=== PATIENT | male | born 1965 | race Caucasian/White ===

== ENCOUNTER 2016-06-08 20:10 | Observation (INO) | payer OTHER ==
[~2016-06-08] VITALS: Ht 177.8 cm; Wt 102.4 kg
[~2016-06-08 20:10] MED LIST: ASCO1TAB22 PO; ASPI-628 PO; INSU100I13 SUBQ; MULT-1018 PO; OMEG1CAP5 PO; Oxycodone Hcl PO
[2016-06-08 20:15] VITALS: BP 163/94; PULSE 97; RESP 18; O2SAT 99
--- NOTE | 2016-06-08 20:40 | ED.REPORT ---
HPI-Abd Pain F 40 and Over Date of Service Jun 08, 2016 ED Provider: Dr. Johnny Saunders D.O. A 51 year old male with a history of hypertension, hypercholesterolemia, nephrolithiasis, diabetes, and pancreatitis s/p cholecystectomy presents to the ED with abdominal pain onset two hours prior to arrival. The patient also reports fatigue. He denies nausea, vomiting, diarrhea, or dysuria. The patient ate [place] food from a restaurant one hour prior to onset of symptoms. Nursing Notes Stated Complaint: STOMACH PAIN Chief Complaint: Male Abdominal Pain Nursing Notes Reviewed: Yes Allergies: Coded Allergies: Penicillins (Verified Allergy, Unknown, ITCHY, 06/08/16) Scheduled Aspirin (Aspir 81) 81 Mg Tablet.dr 81 MG PO DAILY Insulin Glargine (Lantus U100 Solostar Insulin Pen) 100 Unit/1 Ml Insuln.pen 50 UNIT SUBQ QPM-INSULIN Multivitamin (Multi Vitamin Daily) 1 Each Tablet 1 EACH PO DAILY Scheduled PRN ([Oxycodone Hcl]) 5 MG TABLET 5 MG PO Q4H PRN PRN For Pain Miscellaneous Medications Ascorbic Acid/Bioflavonoids (Vit C-Bioflavonoids Tab SA) 1 Each Tablet.er 1 EACH PO [place]-3 Fatty Acids/Fish Oil (Fish Oil 1,000 mg Capsule) 1 Each Capsule 1 EACH PO General Time Seen by MD: 20:39 Chief Complaint Abdominal pain Hx Obtained From: Patient Arrived By: Walk-in Sudden in Onset?: No Onset Occurred: 1 - 4 hours ago Context of Onset: Possible food poisoning Symptom Duration: Since onset Progression since Onset: Gradually worsening Location: : Diffuse Quality: Painful Severity: Current: Moderate Severity: Maximum: Moderate Associated with: Denies: Diarrhea, Dysuria, Fever, Nausea, Vomiting Pertinent Negative: Relieved by nothing Context Related History: Reports: Abdominal surgery, Cholecystitis Recent Healthcare: No recent doctor visit Similar Sx Previous: Yes Past Medical History Past Medical History Notes: See recent visit notes from EKG age, lipase was elevated, CT suggested gallstones July 2014 Past Medical History h/o gallstone pancreatitis -> cholecystectomy Hypercholesterolemia hypertension h/o MRSA h/o right kidney stone Reports: Diabetes mellitus Past Surgical History left thigh abscess incision Reports: Cholecystectomy Family History Reviewed, not relevant Smoking History Never Smoker Social History Alcohol Use: Denies alcohol use Drug Use: THC Other Social History: Local resident Ambulatory Status Independent Review of Systems Constitutional: Reports: Fatigue, Denies: Fever GI: Reports: Abdominal pain, Denies: Diarrhea, Nausea, Vomiting Female: Denies: Dysuria Complete sys rev & neg: except as marked. Physical Exam Vital Signs Vital Signs (First) Date Time Temp Pulse Resp B/P Pulse Ox O2 Delivery O2 Flow Rate FiO2 06/08/16 20:15 36.9 97 18 163/94 99 Room Air Initial VS: Reviewed Head / Eyes: Atraumatic, Normocephalic ENT: Conjunctiva normal, No scleral icterus Neck: Supple, Full range of motion Skin: Warm, Dry, No cyanosis Neurologic: Alert, Oriented, Nonfocal Psychiatric: Mood/affect normal, Behavior normal, Normal thought content General/Constitutional: Awake, Alert Distress / Hydration: Positive: Distress moderate (Writhing due to pain) Respiratory / Chest: Breath sounds NL, Breath sounds = bilat, No respiratory distress Cardiovascular: Heart rate NL, Regular rhythm, Heart sounds NL Abdomen: Soft, No guarding Tenderness/Guarding/Rebound: Positive: Tender periumbilical Interpretation & Diagnostics Lab Results Interpretation Result Diagram: 06/08/16203606/08/162036 Test 06/08/16 20:30 06/08/16 20:37 Lactic Acid Level 1.9mmol/L (0.4-2.0) White Blood Count 16.4th/mm3 (3.8-10.1) Red Blood Count 4.59mil/mm3 (4.40-5.80) Hemoglobin 13.9g/dL (13.8-17.2) Hematocrit 42.2% (41.0-50.0) Mean Corpuscular Volume 91.9fL (81-100) Mean Corpuscular Hemoglobin 30.3pg (27.0-35.0) Mean Corpuscular Hemoglobin Concent 32.9% (32.0-37.0) Red Cell Distribution Width 12.8% (12.3-15.4) Platelet Count 328bil/L (150-400) Neutrophils (%) (Auto) 67.9% (40-74) Lymphocytes (%) (Auto) 21.0% (14-46) Monocytes (%) (Auto) 7.8% (4-12) Eosinophils (%) (Auto) 2.7% (0-5) Basophils (%) (Auto) 0.2% (0-3) Sodium Level 143mEq/L (134-144) Potassium Level 3.8mEq/L (3.5-5.2) Chloride Level 99mEq/L (97-108) Carbon Dioxide Level 32mmol/L (18-29) Blood Urea Nitrogen 15mg/dL (6-24) Creatinine 1.19mg/dL (0.76-1.27) Estimat Glomerular Filtration Rate 69mL/min (>59) Glucose Level 105mg/dL (60-99) Calcium Level 9.6mg/dL (8.5-10.1) Magnesium Level 1.9mg/dL (1.6-2.6) Total Bilirubin 0.3mg/dL (0.0-1.2) Aspartate Amino Transf (AST/SGOT) 24U/L (0-50) Alanine Aminotransferase (ALT/SGPT) 30U/L (0-44) Alkaline Phosphatase 47U/L (25-150) Total Protein 7.5g/dL (6.4-8.4) Albumin 4.4g/dL (3.4-5.0) Lipase 46U/L (13-60) Hold Max Top Tube Received (Received) ECG Interpretation ECG Interpretation: Sinus rhythm rate 89 Time: 20:43 Interpreted by: ED physician CT Abd / Pelvis Interpretation IMPRESSION: 1. Mildly dilated loops of small bowel with a relative transition in the right lower quadrant associated with segmental bowel wall thickening. The findings are compatible with a nonspecific enteritis, likely infectious or inflammatory, with associated mild functional obstruction or ileus. 2. Multiple hypoattenuating hepatic lesions, a few of which demonstrate peripheral nodular enhancement, most likely representing hemangiomas. These are slightly increased in size compared to the prior study of 10/24/12. Dictated by: Santy Martinez M.D. on 06/08/2016 at 22:35 Study type: Abdominal CT IV contrast, Abdom CT oral contrast Interpretation / Wet Read by: Interpret - Radiologist Re-Eval/Medical Decision Source of Hx: Old records Re-Evaluation/Progress : Time of Eval: 23:24 Patient Status: Condition unchanged Re-Evaluation/Progress Note: Patient is still in pain. Discussed with patient CT results, diagnosis, and plan for admit. Patient agrees with plan for care and all questions were addressed. Consultation : Referral / Consult Name: Cy Ahn MD Consulted With: Hospitalist Call Returned at: 23:32 Filament Tester: Agrees with eval, Agrees with plan, Accepts admit Counseled Regarding: Diagnosis, Need for admission Discharge & Departure Primary Impression: SBO (small bowel obstruction) Disposition: ADMITTED TO HOSPITAL Discharge Condition All VS Reviewed: Yes Condition: Stable Referrals: Funmi Koch PA-C (PCP) Ale Attestation Portions of this note were transcribed by Carolynn Gonzalez. I, Dr. Saunders, personally performed the history, physical exam, and medical decision-making; I reviewed and confirmed the accuracy of the information in the transcribed note. Signed by: Ale Reese, 06/08/2016, 23:50 copies to: Funmi Koch PA-C, Todd P DO Jun 08, 2016 20:39 CAROLYNN GONZALEZ Jun 08, 2016 21:04
[2016-06-08 21:03] LABS: BASOPHILS % (AUTO) 0.2 % (0-3); EOSINOPHILS % (AUTO) 2.7 % (0-5); MONOCYTES % (AUTO) 7.8 % (4-12); Mean Corpuscular Hemoglobin 30.3 pg (27.0-35.0); Mean Corpuscular Volume 91.9 fL (81-100); NEUTROPHILS % (AUTO) 67.9 % (40-74); Platelet Count 328 bil/L (150-400)
[2016-06-08] MEDS: 0.9% Sodium Chloride 1,000 ML IV SCH ×2 (21:10→23:47)
[2016-06-08] MEDS: HYDROmorphone 0.5 mg/0.5 mL iSecure Syringe IVPUSH PRN ×3 (21:10→23:04)
[2016-06-08] MEDS: Ondansetron 2 mg/mL 2 mL Inj IVPUSH PRN ×2 (21:11→21:44)
[2016-06-08 21:13] LABS: Magnesium 1.9 mg/dL (1.6-2.6)
--- NOTE | 2016-06-08 22:36 | DRSVH ---
PROCEDURE: CT ABDOMEN AND PELVIS WITH CONTRAST ([id number]) INDICATIONS: severe periumbillical abdominal pain TECHNIQUE: After the administration of oral and intravenous contrast, 5 mm thick sections acquired from the diap hragms to the symphysis. 5 mm thick coronal and sagittal reformats were performed. For radiation do se reduction, the following was used: automated exposure control, adjustment of mA and/or kV accordi ng to patient size. COMPARISON: [facility], CT, CT KUB, 07/04/2015, 14:39. CT abdomen pelvis 08/21/14, CT abd omen pelvis 10/24/12. FINDINGS: Image quality: Excellent. ABDOMEN: Lung bases: Lung bases are clear. Heart size is normal. Solid organs: Multiple hypoattenuating lesions are redemonstrated within the liver a few of which dem onstrate small peripheral foci of enhancement. The largest, within segment II of the left hepatic lo be, measures up to 2.7 x 1.1 cm in Tetris dimension. The lesions appear slightly increased in size c ompared to the prior study of 10/24/12. Biliary system is non-dilated. Pancreas enhances normally. N o adrenal nodules. Kidneys are normal in size and enhancement, without hydronephrosis. Peritoneum and bowel: There are multiple mildly dilated loops of small bowel measuring up to 3.3 cm in diameter. There is a relative transition point in the right lower quadrant associated with a thic k walled segment of small bowel. There are scattered air-fluid levels. The findings are compatible with a nonspecific enteritis with associated mild functional obstruction. Distal loops of small dmitry l are nondistended. The appendix is normal in appearance. There is colonic diverticulosis without a cute diverticulitis. The distal colon is also nondistended. No free fluid or air. Nodes and vessels: No retroperitoneal or mesenteric adenopathy. Aorta and inferior vena cava are no rmal in caliber. Miscellaneous: No ventral hernias. PELVIS: Genitourinary: Bladder wall thickness is normal. Miscellaneous: No inguinal hernias or adenopathy. Bones: No suspicious bony lesions. No vertebral body compression fractures. IMPRESSION: 1. Mildly dilated loops of small bowel with a relative transition in the right lower quadrant associ ated with segmental bowel wall thickening. The findings are compatible with a nonspecific enteritis, likely infectious or inflammatory, with associated mild functional obstruction or ileus. 2. Multiple hypoattenuating hepatic lesions, a few of which demonstrate peripheral nodular enhanceme nt, most likely representing hemangiomas. These are slightly increased in size compared to the prior study of 10/24/12. Dictated by: Santy Martinez M.D. on 06/08/2016 at 22:35 Approved by: Santy Martinez M.D. on 06/08/2016 at 22:35
[2016-06-08 23:04] VITALS: BP 143/83; PULSE 91; RESP 20; O2SAT 99
[2016-06-08] MEDS ORDERED: Polyethylene Glycol (PEG) 17 Gm Powder PO PRN (23:35)
[2016-06-08] MEDS ORDERED: Alum-Mag Hydrox-Simeth 30 mL Suspension PO PRN (23:35)
[2016-06-08] MEDS ORDERED: Ondansetron 2 mg/mL 2 mL Inj IVPUSH PRN (23:35)
[2016-06-08] MEDS ORDERED: Glucose 40% Oral Gel 15 Gm Tube PO PRN (23:40)
[2016-06-09 00:59] VITALS: BP 148/81; PULSE 86; RESP 16; O2SAT 94
[2016-06-09] MEDS: HYDROmorphone 0.5 mg/0.5 mL iSecure Syringe IVPUSH PRN ×2 (01:22→01:23)
[2016-06-09] MEDS: 0.9% Sodium Chloride 1,000 ML IV SCH ×2 (01:44→11:54)
[2016-06-09 01:49] VITALS: BP 145/76; PULSE 71; RESP 18; O2SAT 93
--- NOTE | 2016-06-09 01:57 | PCM.HPMED ---
Subjective Date of Service Jun 08, 2016 Primary Provider: Admitting Physician: Primary Care Physician: Funmi Koch PA-C Attending Physician: Admit Status: From the Emergency Department, 23-Hour Observation, Non-Telemetry Chief Complaint: Acute abdominal pain History of Present Illness: Deven Gilbert is a man with Diabetes, History of Pancreatitis related to Hypertriglyceridemia and Hypertension who presented to [facility] Emergency department with complaints of abdominal pain Patient reported pain onset two hours prior to arrival. The patient ate [place] food from a restaurant 1 hour prior to onset of symptoms. He felt sick and lied down to rest but the symptoms worsened. He reported severe abdominal pain, diffuse, band-like around his mid section without any radiation. Associated symptoms includes nausea but no vomiting. Denies any fever or chills. 4 other family members ate the same tajik food but none of them are sick. Last bowel movement was yesterday morning without any loose stools noted. No recent travels. Also patient denies any coughing, muscle weakness to suggest influenza. Patient had history of acute pancreatitis in 2014 and had a lap cholecystectomy shortly after that time. Patient is diabetic but well controlled with insulin. He denies any other abdominal surgery Review of Systems: Pertinent positives as noted in HPI. All other systems were reviewed and are negative Allergies Coded Allergies: Penicillins (Verified Allergy, Unknown, ITCHY, 06/08/16) PMH Insulin dependent DM2 Pancreatitis thought to be associated with hypertriglyceridemia MRSA abscess and cellulitis of R thigh Morbid obesity Surgical History Lap Cholecystectomy Family History Both parents have no medical issues Social History Hx Alcohol Use: Yes (occasional) Hx Substance Use: Yes (Marijuana) Hx Tobacco Use: No Smoking Status: Never Smoker Exam Vital Signs Vital Sign - Last Date Time Temp Pulse Resp B/P Pulse Ox O2 Delivery O2 Flow Rate FiO2 06/08/16 23:04 91 20 143/83 99 Room Air 06/08/16 20:15 36.9 Exam General: Alert, Oriented X3, Cooperative, mild Distress due to abdominal pain Eyes: PERRLA, Scleral Anicteric Mouth: Mouth Normal, Mucous Membranes Moist/[place]. NG tube in place Neck: Supple, no Thyromegaly, trachea central. Chest & Lungs: Clear to auscultation & percussion, No adventitious breath sounds, no crackles, no wheeze Cardiovascular: Normal S1, Normal S2, No Murmurs/Rubs/Gallops, Regular Rate/ Rhythm, (No JVD, no peripheral edema) Pulses: Radial (present and equal), Dorsalis Pedi (present and equal) Abdomen: Soft, diffuse tender, no rebound tenderness, Non-distended, hypoactive bowel tones. Musculoskeletal: Unremarkable. Normal range of motion, no swollen or erythematous joints Extremities: No edema, no cyanosis, no clubbing. Skin: No rashes. Warm and dry, no erythematous areas Neurological: Grossly neurologically intact, Normal Speech, Sensation Intact Lymphatic: Lymph nodes Cervical and Axillary not palpable. Lab and Diagnostics Labs Laboratory Tests Test 06/08/16 20:30 06/08/16 20:37 Lactic Acid Level 1.9mmol/L (0.4-2.0) White Blood Count 16.4th/mm3 (3.8-10.1) Red Blood Count 4.59mil/mm3 (4.40-5.80) Hemoglobin 13.9g/dL (13.8-17.2) Hematocrit 42.2% (41.0-50.0) Mean Corpuscular Volume 91.9fL (81-100) Mean Corpuscular Hemoglobin 30.3pg (27.0-35.0) Mean Corpuscular Hemoglobin Concent 32.9% (32.0-37.0) Red Cell Distribution Width 12.8% (12.3-15.4) Platelet Count 328bil/L (150-400) Neutrophils (%) (Auto) 67.9% (40-74) Lymphocytes (%) (Auto) 21.0% (14-46) Monocytes (%) (Auto) 7.8% (4-12) Eosinophils (%) (Auto) 2.7% (0-5) Basophils (%) (Auto) 0.2% (0-3) Sodium Level 143mEq/L (134-144) Potassium Level 3.8mEq/L (3.5-5.2) Chloride Level 99mEq/L (97-108) Carbon Dioxide Level 32mmol/L (18-29) Blood Urea Nitrogen 15mg/dL (6-24) Creatinine 1.19mg/dL (0.76-1.27) Estimat Glomerular Filtration Rate 69mL/min (>59) Glucose Level 105mg/dL (60-99) Calcium Level 9.6mg/dL (8.5-10.1) Magnesium Level 1.9mg/dL (1.6-2.6) Total Bilirubin 0.3mg/dL (0.0-1.2) Aspartate Amino Transf (AST/SGOT) 24U/L (0-50) Alanine Aminotransferase (ALT/SGPT) 30U/L (0-44) Alkaline Phosphatase 47U/L (25-150) Total Protein 7.5g/dL (6.4-8.4) Albumin 4.4g/dL (3.4-5.0) Lipase 46U/L (13-60) Hold Max Top Tube Received (Received) Result Diagram: 06/08/16203606/08/162036 X-Rays, CTs and MRIs CT ABDOMEN AND PELVIS WITH CONTRAST 05/08 IMPRESSION: 1. Mildly dilated loops of small bowel with a relative transition in the right lower quadrant associated with segmental bowel wall thickening. The findings are compatible with a nonspecific enteritis, likely infectious or inflammatory, with associated mild functional obstruction or ileus. 2. Multiple hypoattenuating hepatic lesions, a few of which demonstrate peripheral nodular enhancement, most likely representing hemangiomas. These are slightly increased in size compared to the prior study of 10/24/12. Dictated by: Santy Martinez M.D. on 06/08/2016 at 22:35 Approved by: Santy Martinez M.D. on 06/08/2016 at 22:35 Assessment & Plan Deven Gilbert is a man with Diabetes, History of Pancreatitis related to Hypertriglyceridemia and Hypertension who presented to [facility] Emergency department with complaints of abdominal pain 1. Acute Abdominal pain. Present on admission, Ongoing symptoms Possible bowel obstruction secondary to adhesions from prior surgery (not a big surgery to cause adhesions) or possibly ileus. Also could be a viral gastroenteritis. Previous history of pancreatitis, but No Lipase elevation or radiological evidence of Acute Pancreatitis. Bowel wall thickening on Ct scan also suggest infectious or inflammatory process. Some interesting findings around the liver of CT scan but labs are not elevated. Similar findings were noted by the surgeons during the time patient had acute pancreatitis in 2014. - nothing by mouth - continue NG tube placed with intermittent suction - consider Surgical consult in the morning if symptoms do not improve - IV fluids and pain medications 2. Acute Leukocytosis. Present on admission Likely from stress or possible gastroenteritis - monitor closely with repeat labs 3. Insulin dependent Type 2 Diabetes Presumes stable - checking A1c - low correction Lispro algorithm - holding Metformin while in patient - will determine patient's outpatient insulin regimen and resume Lantus 4. Hypertension - will consolidate medications and continue - Acetaminophen as needed for mild pain/fever/headache - Bowel regimen as needed - Antiemetic as needed Patient is admitted under observation status with expected length of stay less than 2 midnights due to severity of presenting symptoms, risk of adverse event, and complexity of treatment plan . Resuscitation Status: CPR: Attempt Resuscitation Cy Ahn MD Jun 08, 2016 23:45
[2016-06-09] MEDS: HYDROmorphone 1 mg/mL Inj IVPUSH PRN ×2 (04:42→09:11)
--- NOTE | 2016-06-09 05:55 | NUR ---
Admit/Med rec pt admitted to floor around 0115, A&O with severe 8/10 abdominal pain, stat Dilaudid IV given as ordered and pain decreased to about 2/10. Pt arrived with NG tube in place which was attached to LIS, small amt of yellowish clear gastric fluids draining. BT very decreased in all quadrants. Pt does not recollect all dosages of his meds and did not bring a list, therefore med rec not completed.
[2016-06-09 06:13] LABS: BASOPHILS % (AUTO) 0.1 % (0-3); EOSINOPHILS % (AUTO) 0.1 % (0-5); MONOCYTES % (AUTO) 5.7 % (4-12); Mean Corpuscular Hemoglobin 30.2 pg (27.0-35.0); Mean Corpuscular Volume 92.6 fL (81-100); NEUTROPHILS % (AUTO) 82.4 % (40-74); Platelet Count 292 bil/L (150-400)
[2016-06-09] MEDS ORDERED: LISI40TA PO (08:16)
[2016-06-09] MEDS ORDERED: METF500T4 PO (08:16)
[2016-06-09] MEDS: Insulin LISPRO 300 Unit/3 mL Inj SUBQ SCH ×3 (09:12→17:08)
--- NOTE | 2016-06-09 10:05 | NUR ---
Social Work: Screen D: Per EMR review, pt is a 51 year old male admitted for Small Bowel Obstruction. P tis [employer] insurance. PCP is Funmi Koch PA-C. NOK is Hieu Fletcher, son, . Pt in observation status. No readmit score entered at this time. Advanced information offered to pt by bedside RN. Pt discussed in morning rounds. Pt currently with NG tube placed and surgery consult pending. A: Pt lives in [place], and is I at baseline. P: Anticipate pt to discharge home with no social work needs identified at this time; CLINICAL DOCUMENTATION SPEC to continue to follow and assist if needs change pending clinical course. DELROY Deng
--- NOTE | 2016-06-09 10:10 | PCM.PNMED ---
Subjective Date of Service Jun 09, 2016 Subjective He is feeling better after placement of the NG tube and drainage of the gastric contents. He looks quite miserable however. Clinically he appears to have a presenting small bowel obstruction although the duration of symptoms and the CT scan would suggest ileus. He has had prior laparoscopic surgery so there is some risk of an adhesion causing bowel obstruction although none was seen on CT. He is asking for ice chips. Exam Vital Signs Vital Sign - Last Date Time Temp Pulse Resp B/P Pulse Ox O2 Delivery O2 Flow Rate FiO2 06/09/16 04:42 Supplement Oxygen 06/09/16 01:49 36.6 71 18 145/76 93 Intake and Output 06/08/16 06/08/16 06/09/16 Cumulative From/Thru 15:00 23:00 07:00 06/08/16 20:15 - 06/09/16 04:42 Intake Total 1000 ml 1000 ml 2000 ml Balance 1000 ml 1000 ml 2000 ml Intake IV Total 1000 ml 1000 ml 2000 ml Exam Alert and oriented 3 without any signs of delirium. He looks quite uncomfortable with the NG tube present in his nostril. Heart is regular rate and rhythm without murmur. Lungs are clear to auscultation bilaterally. Abdomen is obese, nontender, not distended, soft, without organomegaly currently. Extremities have no ankle edema. Lab and Diagnostics Result Diagram: 06/09/1652606/09/16526 X-Rays, CTs and MRIs CT ABDOMEN AND PELVIS WITH CONTRAST 05/08 IMPRESSION: 1. Mildly dilated loops of small bowel with a relative transition in the right lower quadrant associated with segmental bowel wall thickening. The findings are compatible with a nonspecific enteritis, likely infectious or inflammatory, with associated mild functional obstruction or ileus. 2. Multiple hypoattenuating hepatic lesions, a few of which demonstrate peripheral nodular enhancement, most likely representing hemangiomas. These are slightly increased in size compared to the prior study of 10/24/12. Dictated by: Santy Martinez M.D. on 06/08/2016 at 22:35 Approved by: Santy Martinez M.D. on 06/08/2016 at 22:35 Assessment & Plan Deven Gilbert is a 51 year old man with Diabetes, History of Pancreatitis related to Hypertriglyceridemia and Hypertension who presented with complaints of abdominal pain 1. Acute Abdominal pain. Present on admission, Ongoing symptoms Possible bowel obstruction secondary to adhesions from prior surgery (not a big surgery to cause adhesions) or possibly ileus. Also could be a viral gastroenteritis. Previous history of pancreatitis, but No Lipase elevation or radiological evidence of Acute Pancreatitis. Bowel wall thickening on Ct scan also suggest infectious or inflammatory process. Some interesting findings around the liver of CT scan but labs are not elevated. Similar findings were noted by the surgeons during the time patient had acute pancreatitis in 2015. - nothing by mouth - continue NG tube placed with intermittent suction - I have consulted Dr. Mcclellan this morning. - IV fluids and pain medications 2. Acute Leukocytosis. Present on admission Likely from stress or possible gastroenteritis - monitor closely with repeat labs 3. Insulin dependent Type 2 Diabetes Presumes stable - checking A1c - low correction Lispro algorithm - holding Metformin while in patient - will determine patient's outpatient insulin regimen and resume Lantus 4. Hypertension - will consolidate medications and continue - Acetaminophen as needed for mild pain/fever/headache - Bowel regimen as needed - Antiemetic as needed Disposition is pending on surgical impressions. If NG tube can be removed, and diet tolerated than he could potentially be discharged in the next 24 hours. There is also the possibility of needing surgery, still present. . Pain Evaluation: Adequate Pain Control VTE Mechanical Devices: Intermittant Pneumatic CD Resuscitation Status: CPR: Attempt Resuscitation Sarah Cage MD Jun 09, 2016 07:41
--- NOTE | 2016-06-09 12:46 | CONS ---
[address] [address] CONSULTATION REPORT PATIENT: ADI KHALIL : 1965 MR#: [id number] ADMIT: 06/09/2016 JOB ID: [id number] DATE OF SERVICE: 06/09/2016 CHIEF COMPLAINT: Abdominal pain. HISTORY OF PRESENT ILLNESS: The patient is a 51-year-old male who was admitted to the hospital overnight due to abdominal pain. The patient had [place] food in [place] last night, and a couple of hours later, developed discomfort in the mid abdominal region. It was on both sides. This was associated with some nausea, but no vomiting. His girlfriend said he was sweaty and looked pale. There's been no diarrhea. The patient has had a prior episode of gallstone pancreatitis back in 2014 and he thought the pains were sort of similar. The patient did have his gallbladder [place] [address] Wagner. Due to the abdominal pain, patient presented to the emergency room last night and workup included a CT scan that suggests a thickened segment of small bowel in the right lower quadrant which may be compatible with enteritis or functional obstruction or ileus. I was consulted by the hospitalist this morning for evaluation. At this time, the patient has an NG tube in place. He just reported passing flatus and that the abdominal pain has now "turned the corner" and is improving. PAST MEDICAL HISTORY: Obesity, kidney stone, diabetes, left thigh abscess I and D, hypertension, gallstone pancreatitis in 2014, status post laparoscopic cholecystectomy. MEDICATIONS AT HOME: Include baby aspirin, insulin, lisinopril, metformin. ALLERGIES: PENICILLIN. SOCIAL HISTORY: The patient has a girlfriend. He lives in [place]. 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 FAMILY HISTORY: Positive for diabetes. REVIEW OF SYSTEMS: Positive for the nausea, and sweaty and pale, and the abdominal pain. All other systems reviewed and were negative. There is no diarrhea. PHYSICAL EXAMINATION: GENERAL: The patient is currently in the hospital bed in no acute distress. VITAL SIGNS: His BMI is 32.4. Temperature is 36.6, blood pressure 145/76, pulse is 71 respirations 18. HEENT: Head is normocephalic, atraumatic. There is no scleral icterus. NG tube is in place. NECK: Supple. HEART: Is in regular rate. LUNGS: Clear bilaterally. ABDOMEN: Mildly obese, but it is soft. On palpation in all quadrants at this time, there is no tenderness. EXTREMITIES: Show no clubbing and no cyanosis. NEUROLOGICAL: Patient is awake and alert and follows commands. LABORATORY EXAMINATION: Laboratory examination last night showed a white blood count of 16.4, and on repeat this morning the white count is 15.2. Hematocrit 38.9, platelet count is 292. Sodium is 141, potassium 4.4, creatinine is 1.13, total bilirubin 0.3, and lipase last night was 46. ASSESSMENT: This is a 51-year-old male with a 1-day history of mid abdominal pain associated with some nausea, elevated white blood count, and a CT scan finding consistent with possible small bowel enteritis or functional obstruction or ileus. Patient clinically has improved with an NG tube, and he is now passing flatus. It is possible that patient's symptoms were related to the food that he had last night. I think the patient's NG tube can be removed now that he is feeling better and he can be advanced on a diet gradually. I do not think the patient requires surgical intervention at this point. We will follow the patient with you. GA
[2016-06-09] MEDS ORDERED: AMLO5TAB2 PO (14:59)
[2016-06-09] MEDS ORDERED: AMLO10TA3 PO (14:59)
[2016-06-09 15:45] VITALS: BP 124/76; PULSE 80; RESP 18; O2SAT 96
--- NOTE | 2016-06-09 18:05 | PCM.DC.MED ---
Discharge Summary Date of Service Jun 09, 2016 Dates of Hospitalization Date of Hospital Admission Jun 09, 2016 at 00:54 Date of Discharge: Jun 09, 2016 Providers: Admitting Physician: Cy Ahn MD Primary Care Physician: Funmi Koch PA-C Attending Physician: Cy Ahn MD Consultations 06/09/2016 CHIEF COMPLAINT: Abdominal pain. HISTORY OF PRESENT ILLNESS: The patient is a 51-year-old male who was admitted to the hospital overnight due to abdominal pain. The patient had [place] food in [place] last night, and a couple of hours later, developed discomfort in the mid abdominal region. It was on both sides. This was associated with some nausea, but no vomiting. His girlfriend said he was sweaty and looked pale. There's been no diarrhea. The patient has had a prior episode of gallstone pancreatitis back in 2014 and he thought the pains were sort of similar. The patient did have his gallbladder removed in [address] Wagner. Due to the abdominal pain, patient presented to the emergency room last night and workup included a CT scan that suggests a thickened segment of small bowel in the right lower quadrant which may be compatible with enteritis or functional obstruction or ileus. I was consulted by the hospitalist this morning for evaluation. At this time, the patient has an NG tube in place. He just reported passing flatus and that the abdominal pain has now "turned the corner" and is improving. PAST MEDICAL HISTORY: Obesity, kidney stone, diabetes, left thigh abscess I and D, hypertension, gallstone pancreatitis in 2014, status post laparoscopic cholecystectomy. MEDICATIONS AT HOME: Include baby aspirin, insulin, lisinopril, metformin. ALLERGIES: PENICILLIN. SOCIAL HISTORY: The patient has a girlfriend. He lives in [place]. 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 FAMILY HISTORY: Positive for diabetes. REVIEW OF SYSTEMS: Positive for the nausea, and sweaty and pale, and the abdominal pain. All other systems reviewed and were negative. There is no diarrhea. PHYSICAL EXAMINATION: GENERAL: The patient is currently in the hospital bed in no acute distress. VITAL SIGNS: His BMI is 32.4. Temperature is 36.6, blood pressure 145/76, pulse is 71 respirations 18. HEENT: Head is normocephalic, atraumatic. There is no scleral icterus. NG tube is in place. NECK: Supple. HEART: Is in regular rate. LUNGS: Clear bilaterally. ABDOMEN: Mildly obese, but it is soft. On palpation in all quadrants at this time, there is no tenderness. EXTREMITIES: Show no clubbing and no cyanosis. NEUROLOGICAL: Patient is awake and alert and follows commands. LABORATORY EXAMINATION: Laboratory examination last night showed a white blood count of 16.4, and on repeat this morning the white count is 15.2. Hematocrit 38.9, platelet count is 292. Sodium is 141, potassium 4.4, creatinine is 1.13, total bilirubin 0.3, and lipase last night was 46. ASSESSMENT: This is a 51-year-old male with a 1-day history of mid abdominal pain associated with some nausea, elevated white blood count, and a CT scan finding consistent with possible small bowel enteritis or functional obstruction or ileus. Patient clinically has improved with an NG tube, and he is now passing flatus. It is possible that patient's symptoms were related to the food that he had last night. I think the patient's NG tube can be removed now that he is feeling better and he can be advanced on a diet gradually. I do not think the patient requires surgical intervention at this point. We will follow the patient with you. David Mcclellan MD 06/09/16 1029 Procedures XRay, CTs & MRIs CT ABDOMEN AND PELVIS WITH CONTRAST 05/08 IMPRESSION: 1. Mildly dilated loops of small bowel with a relative transition in the right lower quadrant associated with segmental bowel wall thickening. The findings are compatible with a nonspecific enteritis, likely infectious or inflammatory, with associated mild functional obstruction or ileus. 2. Multiple hypoattenuating hepatic lesions, a few of which demonstrate peripheral nodular enhancement, most likely representing hemangiomas. These are slightly increased in size compared to the prior study of 10/24/12. Dictated by: Santy Martinez M.D. on 06/08/2016 at 22:35 Approved by: Santy Martinez M.D. on 06/08/2016 at 22:35 Brief History Deven Gilbert is a man with Diabetes, History of Pancreatitis related to Hypertriglyceridemia and Hypertension who presented to [facility] Emergency department with complaints of abdominal pain Patient reported pain onset two hours prior to arrival. The patient ate [place] food from a restaurant 1 hour prior to onset of symptoms. He felt sick and lied down to rest but the symptoms worsened. He reported severe abdominal pain, diffuse, band-like around his mid section without any radiation. Associated symptoms includes nausea but no vomiting. Denies any fever or chills. 4 other family members ate the same [place] food but none of them are sick. Last bowel movement was yesterday morning without any loose stools noted. No recent travels. Also patient denies any coughing, muscle weakness to suggest influenza. Patient had history of acute pancreatitis in 2014 and had a lap cholecystectomy shortly after that time. Patient is diabetic but well controlled with insulin. He denies any other abdominal surgery Hospital Course 1. Acute Abdominal pain. Present on admission, Ongoing symptoms He was seen by General Surgery and cleared to eat. He has had 2 meals and is discharging to home in stable condition . 2. Acute Leukocytosis. Present on admission WBC is down to 15.2 3. Insulin dependent Type 2 Diabetes Resuming Lantus and Metformin at home. 4. Hypertension Continue Lisinopril and Amlodipine See details of exam in todays progress note. . Exam Vital Signs (Last) Date Time Temp Pulse Resp B/P Pulse Ox O2 Delivery O2 Flow Rate FiO2 06/09/16 15:45 36.6 80 18 124/76 96 Room Air Test 06/08/16 20:30 06/08/16 20:37 06/09/16 05:27 Lactic Acid Level 1.9mmol/L (0.4-2.0) Magnesium Level 1.9mg/dL (1.6-2.6) Lipase 46U/L (13-60) Hold Max Top Tube Received (Received) White Blood Count 15.2th/mm3 (3.8-10.1) Red Blood Count 4.20mil/mm3 (4.40-5.80) Hemoglobin 12.7g/dL (13.8-17.2) Hematocrit 38.9% (41.0-50.0) Mean Corpuscular Volume 92.6fL (81-100) Mean Corpuscular Hemoglobin 30.2pg (27.0-35.0) Mean Corpuscular Hemoglobin Concent 32.6% (32.0-37.0) Red Cell Distribution Width 12.8% (12.3-15.4) Platelet Count 292bil/L (150-400) Neutrophils (%) (Auto) 82.4% (40-74) Lymphocytes (%) (Auto) 11.4% (14-46) Monocytes (%) (Auto) 5.7% (4-12) Eosinophils (%) (Auto) 0.1% (0-5) Basophils (%) (Auto) 0.1% (0-3) Sodium Level 141mEq/L (134-144) Potassium Level 4.4mEq/L (3.5-5.2) Chloride Level 103mEq/L (97-108) Carbon Dioxide Level 26mmol/L (18-29) Blood Urea Nitrogen 13mg/dL (6-24) Creatinine 1.13mg/dL (0.76-1.27) Estimat Glomerular Filtration Rate 73mL/min (>59) Glucose Level 198mg/dL (60-99) Calcium Level 8.8mg/dL (8.5-10.1) Total Bilirubin 0.3mg/dL (0.0-1.2) Aspartate Amino Transf (AST/SGOT) 21U/L (0-50) Alanine Aminotransferase (ALT/SGPT) 26U/L (0-44) Alkaline Phosphatase 43U/L (25-150) Total Protein 6.6g/dL (6.4-8.4) Albumin 3.9g/dL (3.4-5.0) Discharge Medications Discharge Medications Amlodipine (Amlodipine) 5 Mg Tablet 5 MG PO BID (Reported) Aspirin (Aspir 81) 81 Mg Tablet.dr 81 MG PO DAILY (Reported) Insulin Glargine (Lantus U100 Solostar Insulin Pen) 100 Unit/1 Ml Insuln.pen 50 UNIT SUBQ QPM-INSULIN (Reported) Lisinopril (Lisinopril) 40 Mg Tablet 40 MG PO MORNING (Reported) Metformin (Metformin) 500 Mg Tablet 500 MG PO BID (Reported) Multivitamin (Multi Vitamin Daily) 1 Each Tablet 1 EACH PO DAILY (Reported) Miscellaneous Medications Ascorbic Acid/Bioflavonoids (Vit C-Bioflavonoids Tab SA) 1 Each Tablet.er 1 EACH PO (Reported) Holland-3 Fatty Acids/Fish Oil (Fish Oil 1,000 mg Capsule) 1 Each Capsule 1 EACH PO (Reported) Sarah Cage MD Jun 09, 2016 18:05
--- NOTE | 2016-06-09 19:18 | NUR ---
Discharge Pt DC home via private vehicle with family at [address], all belongings with him. He has denied pain since this morning and had no nausea. Tolerated general diet for dinner well and reports passing gas. Pt already has appointment scheduled with his PCP for next week and will follow up.
== END 2016-06-09 19:09 | disposition home or self-care (01) ==
LOC: SED 20:10 → OSC 06-09 00:54
PROVIDERS: ADMIT Hospitalist; ATTEND Hospitalist
DX: R10.9 Unspecified abdominal pain (principal); D72.829 Elevated white blood cell count, unspecified; E11.9 Type 2 diabetes mellitus without complications; I10 Essential (primary) hypertension; E78.1 Pure hyperglyceridemia; E66.01 Morbid (severe) obesity due to excess calories; Z79.82 Long term (current) use of aspirin; Z79.4 Long term (current) use of insulin; Z87.442 Personal history of urinary calculi; Z86.14 Personal history of Methicillin resistant Staphylococcus aureus infection; Z68.32 Body mass index [BMI] 32.0-32.9, adult; Z79.84 Long term (current) use of oral hypoglycemic drugs